=== PATIENT | female | born 1950 | race Two or more races ===

== ENCOUNTER 2020-08-13 07:02 | Day surgery (SDC) | payer OTHER | END 2020-08-13 11:45 | disposition home or self-care (01) | LOC: AMB-ENDOS 07:02 | PROVIDERS: ATTEND Colon & Rectal Surgery | DX: K62.89 Other specified diseases of anus and rectum (principal); Z20.822 Contact with and (suspected) exposure to COVID-19; Z12.11 Encounter for screening for malignant neoplasm of colon ==

== ENCOUNTER 2022-11-25 10:25 | Inpatient (IN) | payer OTHER ==
[~2022-11-25] VITALS: Ht 157.5 cm; Wt 55.8 kg
[2022-11-25] MEDS ORDERED: CHILDREN'S ASPI81 MG (10:31)
[2022-11-25] MEDS ORDERED: COZAAR25 MG PO (10:31)
[2022-11-25] MEDS ORDERED: EZALLOR SPRINKLE5 MG PO (10:31)
[2022-11-25 12:13] LABS: HEMATOCRIT 44.6 % (36.0-45.00); MEAN CELL VOLUME 87.7 fL (80.00-100.00); MEAN CORPUSCULAR HEMOGLOBIN 29.5 pg (27.00-32.0); MEAN CORPUSCULAR HGB CONC 33.6 g/dl (32.0-36.0); PLATELET COUNT 265 K/uL (150-450); RED BLOOD COUNT 5.09 M/uL (4.00-6.00); RED CELL DISTRIBUTION WIDTH 14.5 % (11.5-14.5)
[2022-11-25 12:17] LABS: URINE APPEARANCE Clear; URINE BILIRRUBIN Negative (NEGATIVE); URINE BLOOD Negative; URINE COLOR Dark Yellow; URINE GLUCOSE Negative (NEGATIVE); URINE LEUKOCYTE Trace; URINE NITRATE Negative; URINE PROTEIN 30 (NEGATIVE)
[2022-11-25 12:21] LABS: URINE BACTERIA 3258.2 uL (0.0-1933); URINE EPITHELIAL CELLS 16.3 uL (0.0-38.8); URINE RBC 89.5 uL (0.0-20.8); URINE WBC 19.9 uL (0.0-23.2)
[2022-11-25 12:26] LABS: BILIRUBIN TOTAL 0.65 mg/dL (0.3-1.2); CALCIUM 9.6 mg/dL (8.5-10.1); CREATININE SERUM 0.74 mg/dL (0.55-1.02); GFR 77.14; GLOBULINA 3.9 G/DL (2.4-3.5); POTASSIUM 3.82 mEq/L (3.5-5.1); TOTAL PROTEIN 7.9 gm/dL (6.4-8.2)
[2022-11-26 08:13] LABS: BILIRUBIN TOTAL 0.57 mg/dL (0.3-1.2); BILIRUBIN,CONJUGATED 0.17 mg/dL (0.0-0.2); BILIRUBIN,UNCONJUGATED 0.4 mg/dL (0.0-0.6); CALCIUM 8.1 mg/dL (8.5-10.1); CREATININE SERUM 0.68 mg/dL (0.55-1.02); GFR 85.05; GLOBULINA 2.9 G/DL (2.4-3.5); POTASSIUM 4.06 mEq/L (3.5-5.1); TOTAL PROTEIN 5.9 gm/dL (6.4-8.2)
[2022-11-26 08:40] LABS: HEMATOCRIT 38.9 % (36.0-45.00); MEAN CELL VOLUME 88.4 fL (80.00-100.00); MEAN CORPUSCULAR HEMOGLOBIN 29.4 pg (27.00-32.0); MEAN CORPUSCULAR HGB CONC 33.3 g/dl (32.0-36.0); PLATELET COUNT 247 K/uL (150-450); RED CELL DISTRIBUTION WIDTH 14.1 % (11.5-14.5)
[2022-11-26 08:44] LABS: INR 1.03; PARTIAL THROMBOPLASTIN TIME 26.8 SECONDS (22.0-34.0); PROTHROMBIN TIME 10.8 SECONDS (9.0-11.5)
[2022-11-26 09:36] LABS: ERYTHROCYTE SEDIMENTATION RATE 26 mm/hr
[2022-11-26 12:59] LABS: PH,URINE 5.5 (5.0-8.0); URINE APPEARANCE Clear; URINE BILIRRUBIN Negative (NEGATIVE); URINE BLOOD Negative; URINE COLOR Dark Yellow; URINE GLUCOSE Negative (NEGATIVE); URINE LEUKOCYTE Negative; URINE NITRATE Negative; URINE PROTEIN Trace (NEGATIVE); URINE UROBILINOGEN 0.2 E.U./dl
[2022-11-26 13:06] LABS: URINE BACTERIA 244.3 uL (0.0-1933); URINE RBC 21.9 uL (0.0-20.8); URINE WBC 20.5 uL (0.0-23.2)
[2022-11-26 13:59] LABS: URINE YEAST NEGATIVE /hpf
== END 2022-11-30 12:56 | disposition home or self-care (01) | DRG 390 ==
LOC: ER 10:26 → SEC-K 17:31 → SURG 18:00
PROVIDERS: General Practice; ADMIT Internal Medicine; ATTEND Internal Medicine
PROC: 0DH67UZ Insertion of Feeding Device into Stomach, Via Natural or Artificial Opening (ICD-10-PCS; principal; 2022-11-25)
PROC: BW21YZZ Computerized Tomography (CT Scan) of Abdomen and Pelvis using Other Contrast (ICD-10-PCS; 2022-11-25)
DX: K56.699 Other intestinal obstruction unspecified as to partial versus complete obstruction (principal); D72.828 Other elevated white blood cell count; I10 Essential (primary) hypertension; B95.7 Other staphylococcus as the cause of diseases classified elsewhere; E78.49 Other hyperlipidemia